=== PATIENT | male | born 2000 ===

== ENCOUNTER 2022-06-15 14:26 | Emergency (ER) | payer OTHER ==
[~2022-06-15] VITALS: Ht 185.4 cm; Wt 145.2 kg
[~2022-06-15 14:26] MED LIST: ALBU.083IS; ANTOXYBENA; AUGMENTIN; AZIT200SU; BUDE.25; PRED15SY
[2022-06-15] MEDS ORDERED: BACTRIM DS TAB1 EAC1 PO (16:56)
[2022-06-15] MEDS ORDERED: TRAM50 PO (16:56)
== END 2022-06-15 17:47 | disposition home or self-care (01) ==
LOC: ER 14:26
DX: S52.001A Unspecified fracture of upper end of right ulna, initial encounter for closed fracture (principal); S52.514A Nondisplaced fracture of right radial styloid process, initial encounter for closed fracture; S63.391A Traumatic rupture of other ligament of right wrist, initial encounter; E66.9 Obesity, unspecified; X58.XXXA Exposure to other specified factors, initial encounter; Z79.899 Other long term (current) drug therapy
CPT/HCPCS: 73090; 73110; A9270